=== PATIENT | female | born 1960 ===

== ENCOUNTER 2018-04-05 08:37 | Outpatient (CLI) | payer OTHER | END 2018-04-05 08:41 | disposition home or self-care (01) | LOC: SONOGRAMA 08:37 | DX: E04.1 Nontoxic single thyroid nodule (principal) ==

== ENCOUNTER 2020-04-01 10:30 | Outpatient (CLI) | payer OTHER | END 2020-04-01 10:38 | disposition home or self-care (01) | LOC: SONOGRAMA 10:30 | DX: E04.1 Nontoxic single thyroid nodule (principal) ==

== ENCOUNTER → 2021-08-14 | Outpatient (CLI) | payer OTHER | END | disposition home or self-care (01) | LOC: SONOGRAMA 10:25 | PROVIDERS: ATTEND Pathology Anatomic Pathology & Clinical Pathology | DX: E04.1 Nontoxic single thyroid nodule (principal) ==

== ENCOUNTER 2022-05-20 11:13 | Outpatient (CLI) | payer OTHER | END 2022-05-20 11:15 | disposition home or self-care (01) | LOC: SONOGRAMA 11:13 | PROVIDERS: ATTEND Pathology Anatomic Pathology & Clinical Pathology | DX: E04.2 Nontoxic multinodular goiter (principal) ==